=== PATIENT | male | born 2000 | race Caucasian/White ===

== ENCOUNTER 2019-09-27 04:38 | Emergency (ER) | payer SELFPAY ==
[2019-09-27 04:43] VITALS: BP 146/99; PULSE 146; RESP 21; TEMP 36.5; O2SAT 100
--- NOTE | 2019-09-27 04:53 | ECG_ITS ---
Measurements Intervals [place] Rate: 104 P: 41 OK: 142 QRS: 47 QRSD: 93 T: 36 QT: 329 QTc: 435 Interpretive Statements SINUS TACHYCARDIA BORDERLINE ECG Electronically Signed On 09-27-2019 6:46:52 [employer] by Juan Donald D.O.
[2019-09-27] MEDS: LORAZEPAM INJ 2 MG/ML VIAL 1 MG IV PUSH (05:01)
--- NOTE | 2019-09-27 05:07 | PC.NURSE ---
pt not sure if he is able to urinate. this rn placed urinal at bedside. pt instructed to use call light when he is able to give sample.
[2019-09-27 05:11] LABS: Basophils Absolute Auto 0.1 K/mm3 (0.0-0.1); Basophils Percent Auto 0.8 % (0.2-1.2); Eosinophils Absolute Auto 0.2 K/mm3 (0-0.3); Eosinophils Percent Auto 1.6 % (0-4.4); Hematocrit 46.9 % (42.0-52.0); Hemoglobin 16.9 g/dL (14.0-18.0); Immature Granulocyte Absolute 0.03 K/mm3 (0.00-0.031); Immature Granulocyte Percent A 0.3 % (0-0.5); Lymphocytes Absolute Auto 1.74 K/mm3 (0.9-3.2); Lymphocytes Percent Auto 18.3 % (18.3-44.2); Mean Corpuscular Hemoglobin 29.5 pg (26-34); Mean Corpuscular Volume 81.8 fl (80-100); Mean Platelet Volume 9.4 fl (7.4-10.4); Monocytes Absolute Auto 0.8 K/mm3 (0.1-0.6); Monocytes Percent Auto 8.2 % (2.6-8.5); Neutrophils Absolute Auto 6.7 K/mm3 (1.3-6.7); Neutrophils Percent Auto 70.8 % (45.5-73.1); Platelet Count Result 300 k/mm3 (150-375); Red Blood Count 5.73 M/mm3 (4.6-6.20); Red Cell Distribution Width 12.5 % (11.5-14.5); White Blood Count 9.5 K/mm3 (4.5-10.0)
[2019-09-27 05:19] VITALS: BP 143/90; PULSE 118; RESP 16; O2SAT 99
[2019-09-27 05:23] LABS: Blood Urea Nitrogen 8 mg/dL (9-20); Calcium 9.7 mg/dL (8.4-10.2); Carbon Dioxide 20 mmol/L (22-30); Chloride 99 mmol/L (98-107); Estimated Glomerular Filt Rate > 60; Glucose 103 mg/dL (75-110); Potassium 3.5 mmol/L (3.4-5.0); Sodium 140 mmol/L (137-145)
--- NOTE | 2019-09-27 05:46 | ED.GENADULT ---
HPI - General Adult General Chief complaint: Unspecified Stated complaint: hands tingling Time Seen by Provider: 09/27/19 04:53 Source: patient Mode of arrival: ambulatory Limitations: no limitations History of Present Illness HPI narrative: 19-year-old with no major medical problems here with complaints of palpitations, shortness of breath for past few hours. Patient states that he was at work and started experiencing the symptoms. Patient states that he drinks have 1 can of beer and has used cocaine 3 hours ago. He denies any chest pain. Complains of fingers and arms tingling. Onset (ago): hour(s) (3) Location: chest Severity: moderate Relieving factors: none Exacerbating factors: none Associated symptoms: chest pain and shortness of breath Related Data Allergies Allergy/AdvReac Type Severity Reaction Status Date / Time No Known Allergies Allergy Verified 09/27/19 05:02 Review of Systems Review of Systems: All systems reviewed & are unremarkable except as noted in HPI and below Constitutional: Constitutional: Reports no additional constitutional complaints Eyes: Eyes: Reports as per HPI ENT: Reports system reviewed and no additional complaints, except as documented Cardiovascular: Cardiovascular: Reports chest pain and Reports rapid heart rate Respiratory: Respiratory: Reports dyspnea Gastrointestinal: Gastrointestinal: Reports no additional gastrointestinal complaints Musculoskeletal: Musculoskeletal: Reports no additional musculoskeletal complaints Integumentary/Breasts: Skin/Breast: Reports system reviewed and no additional complaints, except as docu Neurologic: Reports system reviewed and no additional complaints, except as documented Psychiatric: Psychiatric: Reports no additional psychiatric complaints Endocrine: Endocrine: Reports no additional endocrine complaints Exam Narrative: Exam Narrative: GENERAL: Well-appearing, well-nourished, and in no acute distress.anxious HEAD: Normocephalic, atraumatic. EYES: PERRLA and EOMI. ENT: Nares clear, . Mucous membranes moist. NECK: Supple. CHEST: Clear to auscultation. No respiratory distress. HEART: Regular rate and rhythm. No murmur heard. Normal peripheral pulses. ABDOMEN: Soft, non tender, non distended, normal active bowel sounds. EXTREMITIES: Normal range of motion. No edema. SKIN: Warm, dry, no rash. NEURO: No focal deficits. Alert and oriented x3. PSYCH: Normal mood and affect. Course Course Emergency Course: Informed patient about his lab work. He states he is feeling much better. Advised him to consider to quit using drugs . Vital Signs Vital signs: Vital Signs Temperature 36.5 C 09/27/19 04:43 Pulse Rate 146 H 09/27/19 04:43 Respiratory Rate 21 H 09/27/19 04:43 Blood Pressure 146/99 H 09/27/19 04:43 Pulse Oximetry 100 09/27/19 04:43 Temperature 36.5 C 09/27/19 04:43 Pulse Rate 118 H 09/27/19 05:19 Respiratory Rate 16 09/27/19 05:19 Blood Pressure 143/90 H 09/27/19 05:19 Pulse Oximetry 99 09/27/19 05:19 Medical Decision Making Vital Signs Vital Signs: Vital Signs Temperature 36.5 C 09/27/19 04:43 Pulse Rate 146 H 09/27/19 04:43 Respiratory Rate 21 H 09/27/19 04:43 Blood Pressure 146/99 H 09/27/19 04:43 Pulse Oximetry 100 09/27/19 04:43 Temperature 36.5 C 09/27/19 04:43 Pulse Rate 118 H 09/27/19 05:19 Respiratory Rate 16 09/27/19 05:19 Blood Pressure 143/90 H 09/27/19 05:19 Pulse Oximetry 99 09/27/19 05:19 Lab Data Result diagrams: 09/27/19 05:03 09/27/19 05:03 Labs: Lab Results 09/27/19 09/27/19 09/27/19 Range/Units 05:03 05:03 05:37 WBC 9.5 (4.5-10.0) K/mm3 RBC 5.73 (4.6-6.20) M/mm3 Hgb 16.9 (14.0-18.0) g/dL Hct 46.9 (42.0-52.0) % MCV 81.8 (80-100) fl MCH 29.5 (26-34) pg MCHC 36.0 (32-36) g/dl RDW 12.5 (11.5-14.5) % Plt Count 300 (150-375) k/mm3 MPV 9.4 (7.4-10.4)
[2019-09-27 05:48] VITALS: BP 137/87; PULSE 117; RESP 16; O2SAT 98
[2019-09-27 06:00] LABS: Amphetamine Screen Urine Negative (Negative); Barbiturate Screen Urine Negative (Negative); Benzodiazepines Screen Urine Negative (Negative); Cannabinoid Screen Urine Positive (Negative); Cocaine Screen Urine Positive (Negative); Methadone Screen Urine Negative (Negative); Opiate Screen Urine Negative (Negative); Phencyclidine Screen Urine Negative (Negative)
[2019-09-27 06:01] VITALS: BP 153/99; PULSE 108; RESP 18; O2SAT 99
== END 2019-09-27 06:10 | disposition home or self-care (01) ==
PROVIDERS: Emergency Provider Family Medicine
DX: R00.2 Palpitations (principal); F41.9 Anxiety disorder, unspecified; R00.0 Tachycardia, unspecified
CPT/HCPCS: 36415; 80048; 80307; 85025; 93005; 96374; 99284; J2060